=== PATIENT | female | born 1965 | race African-American/Black ===

== ENCOUNTER 2016-08-21 11:09 | Emergency (ER) | payer BC ==
--- NOTE | ~2016-08-21 | US85 ---
[facility]. 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 Ordering Physician: Cassie Haider A.P.R.N. Primary Care Physician: Larissa Slater A.P.R.N. MEDICAL IMAGING REPORT This report is preliminary unless electronic signature is present. EXAM Left lower extremity venous Doppler, 08/21/2016 HISTORY 51-year-old female with left side pain in back of knee for 2 days. Swelling present as well. FINDINGS Hi-scale, color flow and spectral Doppler evaluation of the left lower extremity veins was performed and shows phasic flow and compressibility in the deep veins above the knee with augmentable flow and compressibility in the deep veins below the knee. The proximal and distal saphenous vein are also compressible with no thrombus identified. IMPRESSION No evidence of a DVT or SVT in the left lower extremity. Dictated by... Karlos Perkins M.D. THIS IS AN ELECTRONICALLY VERIFIED REPORT Karlos Perkins M.D. at 08/23/2016 8:44 PM Paty TD: 08/21/2016 13:13 JOB #: [id number] MEDICAL IMAGING REPORT
[~2016-08-21 11:09] MED LIST: AMOXICILLIN875 MG PO; BACTRIM DS TABL1 TAB PO; CELEBREX PO; EXFORGE HCT 5-1 EACH PO; PHENERGAN PO
== END 2016-08-21 12:22 | disposition home or self-care (01) ==
LOC: SED 11:09
DX: M79.605 Pain in left leg (principal); I10 Essential (primary) hypertension; Z98.890 Other specified postprocedural states
CPT/HCPCS: 93971; 99284